=== PATIENT | female | born 1985 | race Caucasian/White ===

== ENCOUNTER 2019-01-19 14:31 | Outpatient (RCR) | payer MEDICAID, MEDICARE ==
[~2019-01-19 14:31] MED LIST: ACET325T38 PO; ACHD5005 PO; ALPR.25T PO; ALPR.5T PO; ALPR0.5T PO; ALPR2TAB6; CEPH-507 PO; CEPH500C PO; CPR500T PO; DOCU-143 PO; DOCU100C37 PO; DOCU100T7; FAMO-119 PO; FAMO10TA71; FAMO20TA13 PO; FAMO20TA5 PO; FAMO40TA6 PO; HYDR-1231 PO; HYDR-2858; HYDR-3820 PO; HYDR-700 PO; HYDR1TAB PO; HYDR480S10 PO; METH500T35 PO; NA P133E22 RC; NA P133E35 PR; NFR150C PO; NITR-65 PO; NITR100C3 PO; NITR100C44 PO; ONDA-42 PO; ONDA4TAB11 PO; ONDA4TAB8 PO; ONDA8TAB6 PO; PALI3TAB2; PEDI1TAB29 PO; POLY17PO23 GT; POLY17PO6 PO; PREN-98 PO; PREN1TAB39 PO; RANI150T66; SENN1TAB76 PO; SMT80CT PO; TRAM50TA2 PO; TRM50T PO; TRZ100T; WTCHGPD TP
== END 2019-04-19 | disposition home or self-care (01) ==
LOC: CARD 14:31
PROVIDERS: ATTEND Family Medicine
DX: R00.2 Palpitations (principal)
CPT/HCPCS: 93225; 93226

== ENCOUNTER 2020-02-05 17:27 | Emergency (ER) | payer MEDICARE, MEDICAID ==
[~2020-02-05] VITALS: Ht 152.4 cm; Wt 107.9 kg
[~2020-02-05 17:27] MED LIST changes: +ACHYD1T PO; -HYDR-3820 PO
[2020-02-05 18:03] LABS: BILIRUBIN,URINE NEGATIVE (NEGATIVE); CLARITY,URINE CLEAR; COLOR,URINE YELLOW; GLUCOSE, URINE (UA) NEGATIVE (NEGATIVE); KETONES,URINE NEGATIVE (NEGATIVE); LEUKOCYTE ESTERASE ,URINE NEGATIVE (NEGATIVE); NITRITE,URINE NEGATIVE (NEGATIVE); PROTEIN,URINE NEGATIVE (NEGATIVE)
[2020-02-05 18:16] LABS: BASOPHILS % (AUTO) 0 % (0-10); EOSINOPHILS # (AUTO) 0.1 10^3/uL (0.0-0.3); EOSINOPHILS % (AUTO) 1 % (0-10); HEMATOCRIT 41 % (35-52); HEMOGLOBIN 12.9 g/dL (11.5-16.0); LYMPHOCYTES % (AUTO) 24 % (12-44); MEAN CORPUSCULAR HEMOGLOBIN 28 pg (25-34); MEAN CORPUSCULAR HGB CONC 32 g/dL (32-36); MEAN CORPUSCULAR VOLUME 90 fL (80-99); MEAN PLATELET VOLUME 9.7 fL (9.0-12.2); MONOCYTES # (AUTO) 0.6 10^3/uL (0.0-1.0); MONOCYTES % (AUTO) 7 % (0-12); NEUTROPHILS # (AUTO) 5.5 10^3/uL (1.8-7.8); NEUTROPHILS % (AUTO) 67 % (42-75); PLATELET COUNT 239 10^3/uL (130-400); WHITE BLOOD COUNT 8.2 10^3/uL (4.3-11.0)
[2020-02-05 18:19] LABS: AMORPHOUS SEDIMENT,UR FEW AMOR URATES /LPF; BACTERIA,URINE TRACE /HPF
--- NOTE | 2020-02-05 18:24 | ED GU-Female ---
General Chief Complaint: Female Reproductive Stated Complaint: BURNING SENSATION/NAUSEA/ORANGE TINGED DISCHARGE Nursing Triage Note: PT AMB TO [facility] 3 WITH COMPLAINT OF UTERINE BURNING FOR THE LAST 24 HOURS. PT THINKS SHE IS APPROX 5-15 WEEKS . STATES MISCARRIED 8 WEEKS AGO. Nursing Sepsis Screen: No Definite Risk Source: patient Exam Limitations: no limitations History of Present Illness Date Seen by Provider: Feb 05, 2020 Time Seen by Provider: 18:19 Initial Comments To ER with suprapubic abdominal burning sensation since of last week with orange discolored urine noticed today. No fevers or chills no lightheadedness. She is and believes herself to be about 5 to 15 weeks along but is not exactly sure. She is scheduled to see Dr. Garcia for this but has not yet seen her. Timing/Duration: constant Severity/Quality: moderate, cramping Location: suprapubic Radiation: none Activities at Onset: none Prior Genitourinary Problems: none Associated Symptoms: denies symptoms Allergies and Home Medications Allergies Coded Allergies: Sulfa (Sulfonamide Antibiotics) (Unverified Allergy, Mild, 06/23/08) azithromycin (Unverified Allergy, Mild, 06/23/08) codeine (Verified Allergy, Mild, 02/05/13) diphenhydramine (Unverified Allergy, Mild, 07/11/08) doxycycline (Unverified Allergy, Mild, 06/23/08) ibuprofen (Unverified Allergy, Mild, 06/23/08) morphine (Verified Allergy, Mild, 02/05/13) prochlorperazine edisylate (Unverified Allergy, Mild, 10/17/10) prochlorperazine maleate (Unverified Allergy, Mild, 10/17/10) promethazine (Unverified Allergy, Mild, 06/23/08) topiramate (Unverified Allergy, Mild, 08/08/08) Latex, Natural Rubber (Verified Allergy, Unknown, 02/26/15) Metronidazole HCl (Unverified Allergy, Unknown, 05/12/13) NSAIDS (Non-Steroidal Anti-Inflamma (Verified Allergy, Unknown, 05/12/13) Penicillins (Unverified Allergy, Unknown, 05/12/13) acetaminophen (Verified Allergy, Unknown, 02/26/15) iodine (Verified Allergy, Unknown, 02/26/15) metoclopramide (Verified Allergy, Unknown, 02/26/15) metronidazole (Unverified Allergy, Unknown, 05/12/13) ondansetron (Verified Allergy, Unknown, 02/26/15) oxycodone (Verified Allergy, Unknown, 02/26/15) Uncoded Allergies: TAPE (Adverse Reaction, Unknown, 02/26/15) Home Medications Tramadol HCl 50 Mg Tablet, 50-100 MG PO Q6H PRN for PAIN Prescribed by: NICOLLE NEAL on 09/12/15 0147 Tramadol HCl 50 Mg Tablet, 50 MG PO Q6H PRN for PAIN Prescribed by: JOHANN HUNTLEY on 12/01/151957 Patient Home Medication List Home Medication List Reviewed: Yes Review of Systems Review of Systems Constitutional: see HPI EENTM: see HPI Respiratory: no symptoms reported Cardiovascular: no symptoms reported Genitourinary: no symptoms reported Musculoskeletal: no symptoms reported Skin: no symptoms reported Psychiatric/Neurological: No Symptoms Reported Endocrine: No Symptoms Reported Hematologic/Lymphatic: No Symptoms Reported Past Cuxlklf-Ymdhhb-Qowamu Hx Patient Social History Alcohol Use: Denies Use Recreational Drug Use: Yes (THC) Smoking Status: Former Smoker Recent Foreign Travel: No Contact w/Someone Who Travel: No Recent Infectious Disease Expo: No Recent Hopitalizations: No Immunizations Up To Date Tetanus Booster (TDap): Unknown PED Vaccines UTD: Yes Seasonal Allergies Seasonal Allergies: No Past Medical History Surgeries: Yes (EGD/COLONOSCOPY, LIPOMAS REMOVED X 2) Section Respiratory: No Cardiac: No Neurological: No Reproductive Disorders: No Female Reproductive Disorders: Denies Sexually Transmitted Disease: Yes (chlamydia tx 2-3 yrs ago) HIV/AIDS: No Gastrointestinal: Yes Gastroesophageal Reflux, Chronic Constipation, Hemorrhoids, Irritable Bowel Musculoskeletal: Yes Fibromyalgia, Chronic Back Pain Endocrine: No Loss of Vision: Denies Hearing Impairment: Denies Cancer: No Psychosocial: Yes Anxiety, PTSD Integumentary: No Blood Disorders: No Adverse Reaction/Blood Tranf: No Family Medical History Cancer (MOTHER, AUNT, MGM,) Cataract (MGM) Congestive heart failure (MOTHER, AUNT, MGM) Family history: Alzheimer's disease (FATHER'S GRANDFATHER,) Family history: Arthritis (MOTHER'S AND FATHER'S SIDE OF FAMILY) Family history: Asthma Family history: Breast disease (MGM) Family history: Cardiovascular disease (MOTHER FATHER'S SIDE OF FAMILY) Family history: Diabetes mellitus (FATHER'S SIDE OF FAMILY) Family history: Gastrointestinal disease (MOTHER) Family history: Hypertension (MOTHER AND FATHER'S SIDE OF FAMILY) Family history: Osteoporosis (MOTHER AND MGM) Hearing loss (MOTHER, FATHER'S SIDE OF FAMILY) Heart disease History of - anemia (AUNT, MGM) History of drug abuse Hypercholesterolemia (MOTHER AND MGM) Myocardial infarction (MGM) Psychotic disorder (MOTHER'S SIDE OF FAMILY) Physical Exam Vital Signs Vital Signs - First Documented 02/05/20 17:50 Temp 36.3 Pulse 90 Resp 20 B/P (MAP) 113/73 (86) Pulse Ox 97 O2 Delivery Room Air Capillary Refill : Less Than 3 Seconds Height, Weight, BMI Height: 5'0" Weight: 220lbs. 2.0oz. 99.609258kv; 46.00 BMI Method:Stated General Appearance: WD/WN, no apparent distress, obese (pleasant, no distress, alert and oriented) Neck: non-tender, full range of motion Cardiovascular: regular rate, rhythm, no murmur Respiratory: no respiratory distress, no accessory muscle use Gastrointestinal: normal bowel sounds, non tender, soft Extremities: normal range of motion, non-tender Neurologic/Psychiatric: alert, normal mood/affect, oriented x 3 Skin: normal color, warm/dry Progress/Results/Core Measures Suspected Sepsis Recent Fever Within 48 Hours: No Infection Criteria Present: None New/Unexplained Altered Menta: No Sepsis Screen: No Definite Risk SIRS Temperature: Pulse: 90 Respiratory Rate: 20 Laboratory Tests 02/05/20 18:10: White Blood Count 8.2 Blood Pressure 113 /73 Mean: 86 Laboratory Tests 02/05/20 18:10: Creatinine 0.78, Platelet Count 239, Total Bilirubin 0.4 Results/Orders Lab Results Laboratory Tests Test 02/05/20 17:52 02/05/20 18:06 02/05/20 18:10 Range/Units Urine Color YELLOW Urine Clarity CLEAR Urine pH 7.0 5-9 Urine Specific [place] 1.015 L 1.016-1.022 Urine Protein NEGATIVE NEGATIVE Urine Glucose (UA) NEGATIVE NEGATIVE Urine Ketones NEGATIVE NEGATIVE Urine Nitrite NEGATIVE NEGATIVE Urine Bilirubin NEGATIVE NEGATIVE Urine Urobilinogen 0.2 < = 1.0 MG/DL Urine Leukocyte Esterase NEGATIVE NEGATIVE Urine RBC (Auto) NEGATIVE NEGATIVE Urine RBC NONE /HPF Urine WBC NONE /HPF Urine Squamous Epithelial Cells 5-10 /HPF Urine Crystals PRESENT H /LPF Urine Amorphous Sediment FEW MARYJANE URATES H /LPF Urine Bacteria TRACE /HPF Urine Casts NONE /LPF Urine Mucus SMALL H /LPF Urine Culture Indicated NO Urine Test POSITIVE NEGATIVE White Blood Count 8.2 4.3-11.0 10^3/uL Red Blood Count 4.55 3.80-5.11 10^6/uL Hemoglobin 12.9 11.5-16.0 g/dL Hematocrit 41 35-52 % Mean Corpuscular Volume 90 80-99 fL Mean Corpuscular Hemoglobin 28 25-34 pg Mean Corpuscular Hemoglobin Concent 32 32-36 g/dL Red Cell Distribution Width 13.1 10.0-14.5 % Platelet Count 239 130-400 10^3/uL Mean Platelet Volume 9.7 9.0-12.2 fL Immature Granulocyte % (Auto) 0 % Neutrophils (%) (Auto) 67 42-75 % Lymphocytes (%) (Auto) 24 12-44 % Monocytes (%) (Auto) 7 0-12 % Eosinophils (%) (Auto) 1 0-10 % Basophils (%) (Auto) 0 0-10 % Neutrophils # (Auto) 5.5 1.8-7.8 10^3/uL Lymphocytes # (Auto) 2.0 1.0-4.0 10^3/uL Monocytes # (Auto) 0.6 0.0-1.0 10^3/uL Eosinophils # (Auto) 0.1 0.0-0.3 10^3/uL Basophils # (Auto) 0.0 0.0-0.1 10^3/uL Immature Granulocyte # (Auto) 0.0 0.0-0.1 10^3/uL Sodium Level 137 135-145 MMOL/L Potassium Level 3.7 3.6-5.0 MMOL/L Chloride Level 105 98-107 MMOL/L Carbon Dioxide Level 22 21-32 MMOL/L Anion Gap 10 5-14 MMOL/L Blood Urea Nitrogen 8 7-18 MG/DL Creatinine 0.78 0.60-1.30 MG/DL Estimat Glomerular Filtration Rate > 60 BUN/Creatinine Ratio 10 Glucose Level 92 70-105 MG/DL Calcium Level 8.5 8.5-10.1 MG/DL Corrected Calcium 8.5 8.5-10.1 MG/DL Total Bilirubin 0.4 0.1-1.0 MG/DL Aspartate Amino Transf (AST/SGOT) 14 5-34 U/L Alanine Aminotransferase (ALT/SGPT) 17 0-55 U/L Alkaline Phosphatase 41 40-136 U/L Total Protein 6.8 6.4-8.2 GM/DL Albumin 4.0 3.2-4.5 GM/DL Human Chorionic Gonadotropin, Quant 2358 H <5 MIU/ML My Orders Orders - DAVID AGUILERA APRN Ua Culture If Indicated (02/05/20 17:42) Hcg,Qualitative Urine (02/05/20 17:42) Hcg,Quantitative (02/05/20 17:54) Cbc With Automated Diff (02/05/20 17:54) Comprehensive Metabolic Panel (02/05/20 17:54) Neisseria Gonorrhea Swab (02/05/20 17:57) Chlam Dna Probe (02/05/20 17:57) Wet Prep (02/05/20 17:57) Genital Culture (02/05/20 17:57) Vital Signs/I&O 02/05/20 17:50 Temp 36.3 Pulse 90 Resp 20 B/P (MAP) 113/73 (86) Pulse Ox 97 O2 Delivery Room Air Capillary Refill : Less Than 3 Seconds Blood Pressure Mean: 86 Departure Communication (Admissions) pelvic exam with Norma PCT at bedside shows no vaginal bleeding or discharge from cervix. Impression Primary Impression: Suprapubic abdominal burning sensation Additional Impression: Abdominal pain in Disposition: 01 HOME, SELF-CARE Condition: Stable Departure-Patient Inst. Decision time for Depature: 18:55 Referrals: NO,LOCAL PHYSICIAN (PCP/Family) Primary Care Physician Patient Instructions: NO INSTRUCTIONS GIVEN Add. Discharge Instructions: 1. Call your regular doctor this week for recheck. Return to ER for any concerns. Emergency department focuses on treating and ruling out life- threatening diseases. Whenever possible, a diagnosis is given. However, most patients are given an impression based on their history, physical exam, and workup during your brief time in the ER. Information about probable diagnosis and other educational material has been provided. Please take the time to read a nd understand this information. It is very important that you follow up with a physician as discussed during the visit today. Failure to adhere to your follow-up instructions may lead to severe disability, injury, or so please make sure to keep your appointments or obtain one as requested. All discharge instructions reviewed with patient and/or family. Voiced understanding. DAVID AGUILERA BUNCH BREAKER Feb 05, 2020 18:24
[2020-02-05 18:33] LABS: CHLORIDE 105 MMOL/L (98-107); POTASSIUM 3.7 MMOL/L (3.6-5.0); SODIUM 137 MMOL/L (135-145)
[2020-02-05 18:35] LABS: CALCIUM 8.5 MG/DL (8.5-10.1)
[2020-02-05 18:36] LABS: GLUCOSE 92 MG/DL (70-105); TOTAL PROTEIN 6.8 GM/DL (6.4-8.2)
[2020-02-05 18:37] LABS: CARBON DIOXIDE 22 MMOL/L (21-32)
[2020-02-05 18:38] LABS: BILIRUBIN,TOTAL 0.4 MG/DL (0.1-1.0)
[2020-02-05 18:39] LABS: ALKALINE PHOSPHATASE 41 U/L (40-136); CREATININE SERUM 0.78 MG/DL (0.60-1.30); GFR ESTIMATED > 60
[2020-02-05 18:40] LABS: BUN/CREATININE RATIO 10
[2020-02-05 18:42] LABS: ALANINE AMINOTRANSFERASE 17 U/L (0-55)
[2020-02-05 19:09] VITALS: BP 110/76
== END 2020-02-05 19:09 | disposition home or self-care (01) ==
LOC: EDUNIT# 17:27 → ER 17:31
DX: O26.899 Other specified pregnancy related conditions, unspecified trimester (principal); R10.30 Lower abdominal pain, unspecified; E66.9 Obesity, unspecified; Z3A.00 Weeks of gestation of pregnancy not specified; Z82.61 Family history of arthritis; Z82.49 Family history of ischemic heart disease and other diseases of the circulatory system; Z83.3 Family history of diabetes mellitus; Z80.9 Family history of malignant neoplasm, unspecified; Z87.891 Personal history of nicotine dependence; Z88.2 Allergy status to sulfonamides; Z88.6 Allergy status to analgesic agent; Z88.1 Allergy status to other antibiotic agents; Z88.5 Allergy status to narcotic agent; Z88.0 Allergy status to penicillin; Z91.040 Latex allergy status; Z91.041 Radiographic dye allergy status; Z88.8 Allergy status to other drugs, medicaments and biological substances
CPT/HCPCS: 36415; 80053; 81000; 84702; 84703; 85025; 87070; 87205; 87210; 87491; 87591; 99284

== ENCOUNTER → 2020-05-01 | Outpatient (CLI) | payer MEDICARE, MEDICAID ==
--- NOTE | 2020-05-01 16:53 | Diagnostic Imaging Report ---
INDICATION: survey. TECHNIQUE: Multiple real-time grayscale images were obtained over the gravid uterus. COMPARISON: None FINDINGS: There are no prior studies available for comparison. There is a single live fetus in cephalic presentation. heart motion was noted and a rate 158 BPM is recorded. There are no obvious abnormalities identified but this exam was technically difficult due to the patient's body habitus. I would recommend that a short-term (4-6 week) follow-up OB ultrasound exam be performed for more sensitive evaluation of the anatomy. The growth parameters are fairly uniform. The placenta is posterior and there is no previa. The amniotic fluid volume is within normal limits. The cervix was identified and measures 4.8 cm in length. Biometrical measurements are as follows: Biparietal 3.71 cm, age 17 weeks 3 days. Head circumference 13.82 cm, age 17 weeks 2 days. Abdominal circumference 11.50 cm, age 17 weeks 2 days. Femur length 2.39 cm, age 17 weeks 2 days. Sonographic estimate age: 17 weeks 3 days. Sonographic estimated date of delivery: 10/06/2020. Estimated Weight: 187 gm (+/- 27 gm). LMP percentile: 41%. heart rate: 158 beats per minute. number: 1 of 1. IMPRESSION: 1. There is a single live fetus of approximately 17 weeks 3 days gestation +/- 1 week. EDC is 10/06/2020. 2. There are no obvious abnormalities identified. Recommendations as above. 3. The growth parameters are fairly uniform. Dictated by: Dictated on workstation # [id number]
== END ==
LOC: RAD 15:11
PROVIDERS: ATTEND Obstetrics & Gynecology
DX: Z34.92 Encounter for supervision of normal pregnancy, unspecified, second trimester (principal); Z3A.17 17 weeks gestation of pregnancy
CPT/HCPCS: 76805

== ENCOUNTER → 2020-06-13 | Outpatient (CLI) | payer MEDICARE, MEDICAID ==
--- NOTE | 2020-06-13 15:07 | Diagnostic Imaging Report ---
INDICATION: survey. TECHNIQUE: Multiple real-time grayscale images were obtained over the gravid uterus. COMPARISON: 05/01/2020. FINDINGS: There is a single live fetus in a blank presentation. heart rate was recorded at 155 bpm. Placenta is posterior. Amniotic fluid volume is normal. Cervical length is 6.7 cm. survey shows the kidneys, bladder and stomach to be unremarkable. brain is unremarkable. There is a four-chamber heart. There is a three-vessel cord with normal insertion. spine is unremarkable. Overall quality is limited due to patient body habitus. Biometrical measurements are as follows: Biparietal 5.64 cm, age 23 weeks 2 days. Head circumference 21.27 cm, age 23 weeks 3 days. Abdominal circumference 18.00 cm, age 23 weeks 0 days. Femur length 4.16 cm, age 23 weeks 4 days. Sonographic estimate age: 23 weeks 3 days. Sonographic estimated date of delivery: 10/07/2020. Estimated Weight: 570 gm (+/- 83 gm). LMP percentile: 30%. heart rate: 155 beats per minute. number: 1 of 1. IMPRESSION: Single live IUP 23-24 weeks gestational age showing normal interval growth when compared prior exam from 05/01/2020. No complicating features are detected. Dictated by: Dictated on workstation # [id number]
== END ==
LOC: RAD 13:46
PROVIDERS: ATTEND Obstetrics & Gynecology
DX: Z34.92 Encounter for supervision of normal pregnancy, unspecified, second trimester (principal); Z3A.23 23 weeks gestation of pregnancy
CPT/HCPCS: 76805

== ENCOUNTER 2020-07-12 18:56 | Outpatient (CLI) | payer MEDICARE, MEDICAID ==
[~2020-07-12] VITALS: Ht 157.5 cm; Wt 119.6 kg
[2020-07-12 19:30] VITALS: BP 120/62
[2020-07-12 19:58] LABS: BILIRUBIN,URINE NEGATIVE (NEGATIVE); CLARITY,URINE CLEAR; COLOR,URINE YELLOW; GLUCOSE, URINE (UA) NEGATIVE (NEGATIVE); KETONES,URINE NEGATIVE (NEGATIVE); LEUKOCYTE ESTERASE ,URINE NEGATIVE (NEGATIVE); NITRITE,URINE NEGATIVE (NEGATIVE); PROTEIN,URINE NEGATIVE (NEGATIVE)
[2020-07-12 20:04] LABS: BACTERIA,URINE TRACE /HPF; SQUAMOUS EPITHELIAL CELL,UR 0-2 /HPF
--- NOTE | 2020-07-15 07:40 | Physician Query-Final Dx ---
KATHERINE AGUILAR 07/15/20 0739: Clinic Account Progress/Dx Physician Query: Please give diagnosis Please include # weeks gestation Date of Service July 12, 2020 at 18:56 RAJAT GROSS DO 07/15/20 0754: Clinic Account Progress/Dx DIAGNOSIS: Diagnosis 28 week IUP Pelvic pressure KATHERINE AGUILAR July 15, 2020 07:39 RAJAT GROSS DO July 15, 2020 07:54
== END 2020-07-12 21:15 | disposition home or self-care (01) ==
LOC: WSo 18:56 → LDRP 18:56 → WSo 21:15
PROVIDERS: ATTEND Obstetrics & Gynecology
DX: O26.893 Other specified pregnancy related conditions, third trimester (principal); Z3A.28 28 weeks gestation of pregnancy
CPT/HCPCS: 81000; G0463; 99214

== ENCOUNTER → 2020-08-19 | Outpatient (CLI) | payer MEDICARE, MEDICAID ==
--- NOTE | 2020-08-19 13:22 | Diagnostic Imaging Report ---
INDICATION: Gestational diabetes. TECHNIQUE: Multiple real-time grayscale images were obtained over the gravid uterus. COMPARISON: 06/13/2020. FINDINGS: There is a single live fetus in a cephalic presentation. heart rate was recorded at 128 bpm. Placenta is posterior and to the right. Amniotic fluid volume is normal. Biometry measurements today are consistent with approximately 36 weeks gestational age. Biophysical profile was performed. Overall biophysical profile score is 8 out of 8. Amniotic fluid index was 17.0 cm. Biometrical measurements are as follows: Biparietal 8.65 cm, age 35 weeks 0 days. Head circumference 32.80 cm, age 37 weeks 2 days. Abdominal circumference 33.19 cm, age 37 weeks 1 days. Femur length 6.60 cm, age 34 weeks 0 days. Sonographic estimate age: 35 weeks 6 days. Sonographic estimated date of delivery: 09/17/2020. Estimated Weight: 2849 gm (+/- 416 gm). LMP percentile: 98%. heart rate: 128 beats per minute. number: 1 of 1. IMPRESSION: Single live IUP measuring 36 weeks gestational age. Biophysical profile score was normal at 8 out of 8. Dictated by: Dictated on workstation # [id number]
== END ==
LOC: RAD 10:31
PROVIDERS: ATTEND Obstetrics & Gynecology
DX: O24.410 Gestational diabetes mellitus in pregnancy, diet controlled (principal); Z3A.36 36 weeks gestation of pregnancy
CPT/HCPCS: 36415; 76805; 76819; 82951; 82952

== ENCOUNTER → 2020-08-26 | Outpatient (CLI) | payer MEDICARE, MEDICAID ==
--- NOTE | 2020-08-26 16:09 | Diagnostic Imaging Report ---
INDICATION: Gestational diabetes. FINDINGS: Ultrasonography reveals a davis intrauterine fetus in cephalic presentation with an amniotic fluid index of 7.1 cm. cardiac activity is present with a rate of 161 BPM. The placenta is posterior without evidence of previa and the cervical length is 6.4 cm. There is breathing motion; however, movements of the trunk and limbs were not confirmed. IMPRESSION: biophysical profile score of 4/8 with hypotonia and decreased movement. Dictated by: Dictated on workstation # [id number]
== END ==
LOC: RAD 14:25
PROVIDERS: ATTEND Obstetrics & Gynecology
DX: O62.0 Primary inadequate contractions (principal); O24.419 Gestational diabetes mellitus in pregnancy, unspecified control; O36.8190 Decreased fetal movements, unspecified trimester, not applicable or unspecified; Z3A.00 Weeks of gestation of pregnancy not specified
CPT/HCPCS: 76819

== ENCOUNTER 2020-08-27 12:51 | Outpatient (CLI) | payer MEDICARE, MEDICAID ==
[~2020-08-27] VITALS: Ht 152 cm; Wt 120.5 kg
[2020-08-27 13:39] VITALS: BP 121/66
--- NOTE | 2020-08-27 16:39 | Diagnostic Imaging Report ---
INDICATION: [place] BPP/NST 08/26/20 gestational diabetes. COMPARISON: 08/26/2020. Biophysical Profile Score: Movement: 2 Breathin Tone: 2 Fluid: 2 Total: 10/06 Heart Rate: 143 BPM Presentation is cephalic. Placenta is posterior in position but the inferior margin is not evaluated. REJI is 6.72cm. The single largest vertical pocket is 4.2 cm. Cervix measures approximately 5 cm in length. IMPRESSION: Normal Biophysical Profile Score. Dictated by: Dictated on workstation # [id number]
--- NOTE | 2020-08-28 07:44 | Physician Query-Final Dx ---
KATHERINE AGUILAR 08/28/20 0744: Clinic Account Progress/Dx Physician Query: Please give diagnosis Please include # weeks gestation Date of Service Aug 27, 2020 at 12:51 MATIAS DAVIES DO 08/31/20 0946: Clinic Account Progress/Dx DIAGNOSIS: Diagnosis 33 weeks gestation borderline testing gestational diabetes, poor control non compliance KATHERINE AGUILAR Aug 28, 2020 07:44 MATIAS DAVIES DO Aug 31, 2020 09:46
== END 2020-08-27 14:30 | disposition home or self-care (01) ==
LOC: LDRP 12:51 → WSo 12:51
PROVIDERS: ATTEND Obstetrics & Gynecology
DX: O24.419 Gestational diabetes mellitus in pregnancy, unspecified control (principal); Z91.19 Patient's noncompliance with other medical treatment and regimen; Z3A.33 33 weeks gestation of pregnancy
CPT/HCPCS: 59025; 76819

== ENCOUNTER → 2020-09-05 | Outpatient (CLI) | payer MEDICARE, MEDICAID ==
--- NOTE | 2020-09-05 17:58 | Diagnostic Imaging Report ---
INDICATION: High risk . EXAMINATION: Biophysical profile. FINDINGS: Ultrasonography reveals davis intrauterine fetus in cephalic presentation. cardiac activity is present with a rate of 159 beats per minute. Amniotic fluid index is 8.4 cm. breathing movements, motion and tone were confirmed. IMPRESSION: Normal biophysical profile score of 8/8. Dictated by: Dictated on workstation # [id number]
== END ==
LOC: RAD 12:16
PROVIDERS: ATTEND Obstetrics & Gynecology
DX: O09.299 Supervision of pregnancy with other poor reproductive or obstetric history, unspecified trimester (principal); O09.90 Supervision of high risk pregnancy, unspecified, unspecified trimester; Z3A.00 Weeks of gestation of pregnancy not specified
CPT/HCPCS: 76819

== ENCOUNTER 2020-09-10 13:50 | Outpatient (CLI) | payer MEDICARE, MEDICAID ==
[~2020-09-10] VITALS: Ht 157.5 cm; Wt 122.7 kg
[2020-09-10 14:22] VITALS: BP 129/75
[2020-09-10 14:56] LABS: BILIRUBIN,URINE NEGATIVE (NEGATIVE); CLARITY,URINE CLEAR; COLOR,URINE YELLOW; GLUCOSE, URINE (UA) NEGATIVE (NEGATIVE); KETONES,URINE NEGATIVE (NEGATIVE); LEUKOCYTE ESTERASE ,URINE NEGATIVE (NEGATIVE); NITRITE,URINE NEGATIVE (NEGATIVE); PROTEIN,URINE NEGATIVE (NEGATIVE)
[2020-09-10 15:12] LABS: BACTERIA,URINE TRACE /HPF; WBC,URINE 0-2 /HPF
--- NOTE | 2020-09-11 09:13 | Physician Query-Final Dx ---
KATHERINE AGUILAR 09/11/20 0913: Clinic Account Progress/Dx Physician Query: Please give diagnosis Please include # weeks gestation Date of Service Sep 10, 2020 at 13:50 MATIAS DAVIES DO 09/11/20 1158: Clinic Account Progress/Dx DIAGNOSIS: Diagnosis 36 week gestation contraction gestational diabetes, poor control non compliant previous section KATHERINE AGUILAR Sep 11, 2020 09:13 MATIAS DAVIES DO Sep 11, 2020 11:58
== END 2020-09-10 15:30 | disposition home or self-care (01) ==
LOC: WSo 13:50 → LDRP 13:51 → WSo 15:30
PROVIDERS: ATTEND Obstetrics & Gynecology
DX: O62.9 Abnormality of forces of labor, unspecified (principal); O24.419 Gestational diabetes mellitus in pregnancy, unspecified control; Z3A.36 36 weeks gestation of pregnancy
CPT/HCPCS: 81000; 82947; G0463; 99213

== ENCOUNTER → 2020-09-12 | Outpatient (CLI) | payer MEDICARE, MEDICAID ==
[~2020-09-12] MED LIST changes: +DCS100C PO; +OXC5T PO; +[UNRECOGNIZED DRUG - OTHER]
--- NOTE | 2020-09-12 15:53 | Diagnostic Imaging Report ---
INDICATION: High risk , gestational diabetes TECHNIQUE: Multiple real-time grayscale images were obtained over the gravid uterus. COMPARISON: 08/19/2020 FINDINGS: Intrauterine currently in a cephalic presentation. Normal amount of amniotic fluid, index at 18.32 cm. anatomical evaluation performed. Biometrical measurements are as follows: Biparietal 9.67 cm, age 39 weeks 4 days. Head circumference 34.26 cm, age 39 weeks 4 days. Abdominal circumference 34.69 cm, age 38 weeks 5 days. Femur length 7.32 cm, age 37 weeks 4 days. Sonographic estimate age: 38 weeks 6 days. Sonographic estimated date of delivery: 09/20/20. Estimated Weight: 3531 gm (+/- 516 gm). LMP percentile: 95%. heart rate: 149 beats per minute. number: 1 of 1. Biophysical Profile Scoring: breathin Body movement: 2 tone: 2 Amniotic fluid: 2 Total BPP Score: 8/8 IMPRESSION: 1. Single viable intrauterine currently in a cephalic presentation. Sonographic estimated age 38 weeks 6 days for an estimated date of delivery 09/20/2020 this corresponds to initial ultrasound dating. 2. Normal biophysical profile score. Dictated by: Dictated on workstation # [id number]
== END ==
LOC: RAD 12:50
PROVIDERS: ATTEND Obstetrics & Gynecology
DX: O24.410 Gestational diabetes mellitus in pregnancy, diet controlled (principal); O09.299 Supervision of pregnancy with other poor reproductive or obstetric history, unspecified trimester; Z3A.38 38 weeks gestation of pregnancy
CPT/HCPCS: 76805; 76819

== ENCOUNTER 2020-09-13 12:45 | Inpatient (IN) | payer MEDICARE, MEDICAID ==
[2020-09-13] VITALS (8 sets, daily range): BP systolic 122–141; BP diastolic 72–91
[~2020-09-13] VITALS: Ht 154.9 cm; Wt 122.7 kg
[~2020-09-13 12:45] MED LIST changes: -DCS100C PO; -OXC5T PO; -[UNRECOGNIZED DRUG - OTHER]
[2020-09-13] MEDS ORDERED: CITRIC ACID/SOB CIT (BICITRA) 30 ML UDC PO ONE ×2 (13:30→13:45)
[2020-09-13] MEDS ORDERED: LACTATED RINGERS 1,000 ML IV PRN ×3 (13:30→13:45)
[2020-09-13 13:39] LABS: BASOPHILS % (AUTO) 0 % (0-10); EOSINOPHILS # (AUTO) 0.1 10^3/uL (0.0-0.3); EOSINOPHILS % (AUTO) 1 % (0-10); HEMATOCRIT 36 % (35-52); HEMOGLOBIN 11.5 g/dL (11.5-16.0); LYMPHOCYTES # (AUTO) 1.9 10^3/uL (1.0-4.0); LYMPHOCYTES % (AUTO) 15 % (12-44); MEAN CORPUSCULAR HEMOGLOBIN 27 pg (25-34); MEAN CORPUSCULAR HGB CONC 32 g/dL (32-36); MEAN CORPUSCULAR VOLUME 83 fL (80-99); MEAN PLATELET VOLUME 10.3 fL (9.0-12.2); MONOCYTES # (AUTO) 0.9 10^3/uL (0.0-1.0); MONOCYTES % (AUTO) 7 % (0-12); NEUTROPHILS # (AUTO) 9.7 10^3/uL (1.8-7.8); NEUTROPHILS % (AUTO) 77 % (42-75); PLATELET COUNT 220 10^3/uL (130-400); WHITE BLOOD COUNT 12.7 10^3/uL (4.3-11.0)
[2020-09-13 14:27] LABS: ALANINE AMINOTRANSFERASE 16 U/L (0-55); ALBUMIN 3.3 GM/DL (3.2-4.5); ALKALINE PHOSPHATASE 148 U/L (40-136); BILIRUBIN,TOTAL 0.3 MG/DL (0.1-1.0); BUN/CREATININE RATIO 15; CARBON DIOXIDE 19 MMOL/L (21-32); CHLORIDE 108 MMOL/L (98-107); CREATININE SERUM 0.65 MG/DL (0.60-1.30); GFR ESTIMATED > 60; GLUCOSE 93 MG/DL (70-105); POTASSIUM 3.9 MMOL/L (3.6-5.0); SODIUM 137 MMOL/L (135-145); TOTAL PROTEIN 6.6 GM/DL (6.4-8.2)
[2020-09-13] MEDS ORDERED: FAMOTIDINE 20MG/2ML IV (PEPCID) IVP NR (14:30)
--- NOTE | 2020-09-13 14:39 | History & Physical-OB ---
OB - Chief Complaint & HPI Date/Time Date of Admission: Date of Admission: Sep 13, 2020 at 12:45 Date seen by a Provider: Sep 13, 2020 Time Seen by a Provider: 14:30 Chief Complaint/History OB-Reason for Admission/Chief: Section Hx : 9 Hx Para: 2153 Expected Date of Delivery: Oct 07, 2020 Gestational Age in Weeks: 36 Gestational Age in Days: 4 Indication for : desires repeat History of Labs A+/- HBsAg - Hep C - Rub I VDRL NR HIV - elevated 1 hour. Refused 3 hour Has not been checking blood sugars Other Patient with previous history of cs x 3 G9/3153 at 36 4/7 weeks has had gest diabetes but has declined checking her blood sugars presented to office yesterday for visit and was yi regularly every 2-5 minutes due to previous history of CS x 3 decided to do CS due to history of uterine window. otherwise uncomplicated Has had borderline testing but passed other testing Growth is LGA and polyhydramnios Allergies and Home Medications Allergies Coded Allergies: Sulfa (Sulfonamide Antibiotics) (Unverified Allergy, Mild, 06/23/08) azithromycin (Unverified Allergy, Mild, 06/23/08) codeine (Verified Allergy, Mild, 02/05/13) diphenhydramine (Unverified Allergy, Mild, 07/11/08) doxycycline (Unverified Allergy, Mild, 06/23/08) ibuprofen (Unverified Allergy, Mild, 06/23/08) morphine (Verified Allergy, Mild, 02/05/13) prochlorperazine edisylate (Unverified Allergy, Mild, 10/17/10) prochlorperazine maleate (Unverified Allergy, Mild, 10/17/10) promethazine (Unverified Allergy, Mild, 06/23/08) topiramate (Unverified Allergy, Mild, 08/08/08) Latex, Natural Rubber (Verified Allergy, Unknown, 02/26/15) Metronidazole HCl (Unverified Allergy, Unknown, 05/12/13) NSAIDS (Non-Steroidal Anti-Inflamma (Verified Allergy, Unknown, 05/12/13) Penicillins (Unverified Allergy, Unknown, 05/12/13) acetaminophen (Verified Allergy, Unknown, 02/26/15) iodine (Verified Allergy, Unknown, 02/26/15) metoclopramide (Verified Allergy, Unknown, 02/26/15) metronidazole (Unverified Allergy, Unknown, 05/12/13) ondansetron (Verified Allergy, Unknown, 02/26/15) oxycodone (Verified Allergy, Unknown, 02/26/15) Uncoded Allergies: TAPE (Adverse Reaction, Unknown, 02/26/15) Home Medications No Active Prescriptions or Reported Meds Patient Home Medication List Home Medication List Reviewed: Yes OB - History Hx of Present Ultrasounds: Normal mid trimester US Obstetrical Complications: Gestational Diabetes Medical Complications: None Information Induced Hypertension: Yes Maternal Gestational Diabetes: Yes Hemorrhage: No Obstetrical History Hx : 9 Hx Para: 3053 Hx # Term Pregnancies: 3 Hx # Pregnancies: 1 Number of Living Children: 3 Hx Termination: No Hx Multiple Gestation: No Hx Stillbirth: No Hx Complication: No Hx Induced Hypertens: No Hx Maternal Gestational Diabet: No Delivery History Hx Dystocia: No Hx Large For Gestational Age I: No Hx Small for Gestational Age I: No Hx Section: Yes Hx Vaginal Delivery Post C-Sec: No Hx Blood Disorders: No Adverse Rxn to Tranfusion: No Patient Past Medical History gestational diabetes, not compliant with checking blood sugars Social History/Family History Alcohol Use: Denies Use 2nd Hand Smoke Exposure: No Immunizations Hepatitis B: Yes Tetanus Booster (TDap): Less than 5yrs Rubella: immune RPR/VDRL: Negative GBS Status: Negative HBsAG: Negative OB - Admission Exam Physical Exam Heart: Rhythm Normal Lungs: Clear Abdomen: Gravid Extremities: Normal Reflexes: Normal Cervical Dilatation: None Effacement: 0% Station: Ballotable Membranes: Intact Heart Rate: 130's Accelerations: Accelerations Present Decelerations: Variable Decelerations Short Term Variability: Present Halfway Variability: Minimal (3-5) Contractions on Admission: < 5 Minutes Apart Intensity: Mild Labs Laboratory Tests Test 09/13/20 13:01 09/13/20 13:12 Range/Units White Blood Count 12.7 H 4.3-11.0 10^3/uL Red Blood Count 4.27 3.80-5.11 10^6/uL Hemoglobin 11.5 11.5-16.0 g/dL Hematocrit 36 35-52 % Mean Corpuscular Volume 83 80-99 fL Mean Corpuscular Hemoglobin 27 25-34 pg Mean Corpuscular Hemoglobin Concent 32 32-36 g/dL Red Cell Distribution Width 13.2 10.0-14.5 % Platelet Count 220 130-400 10^3/uL Mean Platelet Volume 10.3 9.0-12.2 fL Immature Granulocyte % (Auto) 1 % Neutrophils (%) (Auto) 77 H 42-75 % Lymphocytes (%) (Auto) 15 12-44 % Monocytes (%) (Auto) 7 0-12 % Eosinophils (%) (Auto) 1 0-10 % Basophils (%) (Auto) 0 0-10 % Neutrophils # (Auto) 9.7 H 1.8-7.8 10^3/uL Lymphocytes # (Auto) 1.9 1.0-4.0 10^3/uL Monocytes # (Auto) 0.9 0.0-1.0 10^3/uL Eosinophils # (Auto) 0.1 0.0-0.3 10^3/uL Basophils # (Auto) 0.0 0.0-0.1 10^3/uL Immature Granulocyte # (Auto) 0.1 0.0-0.1 10^3/uL Sodium Level 137 135-145 MMOL/L Potassium Level 3.9 3.6-5.0 MMOL/L Chloride Level 108 H 98-107 MMOL/L Carbon Dioxide Level 19 L 21-32 MMOL/L Anion Gap 10 5-14 MMOL/L Blood Urea Nitrogen 10 7-18 MG/DL Creatinine 0.65 0.60-1.30 MG/DL Estimat Glomerular Filtration Rate > 60 BUN/Creatinine Ratio 15 Glucose Level 93 70-105 MG/DL Calcium Level 9.0 8.5-10.1 MG/DL Corrected Calcium 9.6 8.5-10.1 MG/DL Total Bilirubin 0.3 0.1-1.0 MG/DL Aspartate Amino Transf (AST/SGOT) 11 5-34 U/L Alanine Aminotransferase (ALT/SGPT) 16 0-55 U/L Alkaline Phosphatase 148 H 40-136 U/L Total Protein 6.6 6.4-8.2 GM/DL Albumin 3.3 3.2-4.5 GM/DL Glucometer 89 70-110 MG/DL OB - Assessment/Plan/Diagnosis Assessment Assessment: section Admission Dx 1 previous section 2. contractions 3.. gestational diabetes without treatment or compliance 4. history of ptl x 1 Plan repeat cs due to repeated contractions and risk for uterine rupture. Also poor control of diabetes Risks of bleeding, infection, injury to bowel, bladder and ureter explained to patient and patient understands. Prophylactic antibiotics and SCDs Admission Status: Inpatient Order (span 2 midnights) Reason for Inpatient Admission: section Plan Plan: Section MATIAS DAVIES DO Sep 13, 2020 14:39
[2020-09-13] MEDS ORDERED: FAMOTIDINE 20MG/2ML IV (PEPCID) ONE (14:44)
[2020-09-13] MEDS ORDERED: OXYTOCIN PRE-MIX DRIP 500 ML IV ONE (14:58)
[2020-09-13] MEDS ORDERED: fentaNYL INJ 100 MCG/2 ML AMP ONE (14:58)
[2020-09-13] MEDS ORDERED: ceFAZolin 2 GM IV Premixed 50 ML ONE (15:15)
[2020-09-13] MEDS ORDERED: PHENYLEPHRINE 100 MCG/ML 10 ML (ANESTHESIA) SYR ONE (15:54)
[2020-09-13] MEDS ORDERED: inSUlin ASPART (NovoLOG) 1 UNIT/0.01 ML (CHARGE PER UNIT) SC SCH (16:00)
--- NOTE | 2020-09-13 16:12 | Cesarean Section Operative ---
Procedure Procedure Note Pre-operative Diagnosis: Yareli willoughby (35 /Para 9 / 3053, Gestational Age 36 4/7 weeks previous section x 3, gestational diabetes, contractions Post-operative Diagnosis: same Procedure: repeat low transverse section Physician: MATIAS DAVIES Estimated blood loss: 300 mL Disposition: stable Findings: Viable male infant, Apgars 8/9, weight 7#11 ounces, intact placenta, 3vc, normal appearing uterus, tubes, and ovaries. Indications:Yareli willoughby 35 /Para 9 / 3053,Gestational Age 36 4/7 weeks previous section x 3, gestational diabetes, contractions Procedure Details: The patient was seen in pre-op and the procedure was discussed with the patient in full, including the risks, benefits, and alternatives. All questions were answered. The patient was taken to the operating room and a time out was performed, verifying patient and procedure. After spinal anesthesia was placed by our anesthesia colleagues, the patient was placed in the dorsal supine with leftward tilt for uterine displacement.~ Her abdomen was then prepped and draped in the typical sterile fashion. A Pfannenstiel skin incision was made using a scalpel and carried down through the underlying fascia. The fascia was incised in the midline and tented up using Lamberto clamps. The fascia was very thick and scarred. On both the inferior and superior fascia side the rectus muscle was dissected off bluntly and sharply using Muñoz scissors. The peritoneum was identified and entered bluntly in the midline. This was then stretched laterally using manual strength. After entering the abdominal cavity and confirming lack of intraperitoneal adhesions, a large Mauricio retractor was placed and the lower uterine segment was visualized. A scalpel was utilized to make a low transverse uterine incision. Amniotomy was performed with an Allis clamp with return of clear fluid. The infant's head was grasped and brought to the level of the incision. Fundal pressure was applied and was delivered without difficulty. Mouth and nares were suctioned with bulb suction. After the umbilical cord was clamped and cut, the infant was handed off to the pediatric staff. A sample of cord blood was then obtained. The placenta was delivered intact via uterine massage. The uterus was cleared of all clots and debris. The uterine incision was closed using 0 Vicryl in a running locked fashion. A second imbricated layer was placed using 0 Vicryl in a running fashion as well. The bilateral tubes and ovaries appeared normal. The abdominal gutters were cleared of all clots and debris. A final check of the uterine incision showed it to be hemostatic. The peritoneum was closed using 3-0 Vicryl in a running fashion. The fascia was closed with 0 PDS in a running fashion. The subcutaneous space was hemostatic, and irrigated. The subcutaneous space was closed with 0Plain in several single interrupted stitches. The skin was then closed using 4-0 Monocryl in a running subcuticular fashion. The skin edges were reapproximated together and were hemostatic. A pressure dressing was applied. All sponge, lap and needle counts were correct at the end of the procedure per nursing. Vitals - Labs Labs Laboratory Tests 09/13/20 13:01: White Blood Count 12.7H, Red Blood Count 4.27, Hemoglobin 11.5, Hematocrit 36, Mean Corpuscular Volume 83, Mean Corpuscular Hemoglobin 27, Mean Corpuscular Hemoglobin Concent 32, Red Cell Distribution Width 13.2, Platelet Count 220, Mean Platelet Volume 10.3, Immature Granulocyte % (Auto) 1, Neutrophils (%) (Auto) 77H, Lymphocytes (%) (Auto) 15, Monocytes (%) (Auto) 7, Eosinophils (%) (Auto) 1, Basophils (%) (Auto) 0, Neutrophils # (Auto) 9.7H, Lymphocytes # (Auto) 1.9, Monocytes # (Auto) 0.9, Eosinophils # (Auto) 0.1, Basophils # (Auto) 0.0, Immature Granulocyte # (Auto) 0.1, Sodium Level 137, Potassium Level 3.9, Chloride Level 108H, Carbon Dioxide Level 19L, Anion Gap 10, Blood Urea Nitrogen 10, Creatinine 0.65, Estimat Glomerular Filtration Rate > 60, BUN/Creatinine Ratio 15, Glucose Level 93, Calcium Level 9.0, Corrected Calcium 9.6, Total Bilirubin 0.3, Aspartate Amino Transf (AST/SGOT) 11, Alanine Aminotransferase (ALT/SGPT) 16, Alkaline Phosphatase 148H, Total Protein 6.6, Albumin 3.3 09/13/20 13:12: Glucometer 89 MATIAS DAVIES DO Sep 13, 2020 16:12
[2020-09-13] MEDS ORDERED: OXYTOCIN PRE-MIX DRIP 500 ML IV SCH (16:15)
[2020-09-13] MEDS ORDERED: MEASLES,MUMPS,RUBELLA 1 EA INJ SC SCH (16:15)
[2020-09-13] MEDS ORDERED: TETANUS,DIPTH,PERTUSS P/F (BOOSTRIX) 0.5 ML VIAL IM SCH (16:15)
[2020-09-13] MEDS ORDERED: ONDANSETRON 4 MG/2 ML (SDV) Z0FRAN IVP PRN (16:15)
[2020-09-13] MEDS ORDERED: fentaNYL INJ 100 MCG/2 ML AMP IVP PRN (16:15)
[2020-09-13] MEDS: hydrOXYzine (ATARAX) 10 MG TAB PO PRN (18:23)
[2020-09-13] MEDS ORDERED: CATHETER FLUSH 10 ML SYR IV SCH (22:00)
[2020-09-13] MEDS: DOCUSATE SODIUM 100 MG (COLACE) CAP PO SCH (22:12)
[2020-09-13] MEDS: ACETAMINOPHEN 500 MG TAB (TYLENOL) PO SCH (22:12)
[2020-09-14] MEDS: SIMETHICONE 80 MG (MYLICON) CHEW PO PRN ×5 (00:59→21:08)
[2020-09-14 01:30] VITALS: BP 114/57
[2020-09-14] MEDS ORDERED: MILK OF MAGNESIA 400 MG/5 ML 30 ML UDC PO PRN (05:00)
[2020-09-14] MEDS: ACETAMINOPHEN 500 MG TAB (TYLENOL) PO SCH ×3 (05:35→21:08)
[2020-09-14 06:13] LABS: BASOPHILS % (AUTO) 0 % (0-10); EOSINOPHILS # (AUTO) 0.1 10^3/uL (0.0-0.3); EOSINOPHILS % (AUTO) 0 % (0-10); HEMATOCRIT 31 % (35-52); LYMPHOCYTES # (AUTO) 1.9 10^3/uL (1.0-4.0); LYMPHOCYTES % (AUTO) 14 % (12-44); MEAN CORPUSCULAR HEMOGLOBIN 27 pg (25-34); MEAN CORPUSCULAR HGB CONC 32 g/dL (32-36); MEAN CORPUSCULAR VOLUME 84 fL (80-99); MEAN PLATELET VOLUME 10.6 fL (9.0-12.2); MONOCYTES % (AUTO) 7 % (0-12); NEUTROPHILS % (AUTO) 78 % (42-75); PLATELET COUNT 190 10^3/uL (130-400); WHITE BLOOD COUNT 14.1 10^3/uL (4.3-11.0)
[2020-09-14 06:41] VITALS: BP 132/71
--- NOTE | 2020-09-14 08:14 | Progress Note ---
Standard Progress Note Progress Notes/Assess & Plan Date Seen by a Provider: Sep 14, 2020 Time Seen by a Provider: 08:13 Progress/Assessment & Plan This is a patient of Dr. Garcia for whom I am covering. This patient underwent repeat yesterday. She is ambulating, voiding, tolerating oral intake well and has good pain control. Patient denies chest pain, denies shortness of breath, denies nausea and vomiting, and denies headache. Vital Signs Date Time Temp Pulse Resp B/P (MAP) Pulse Ox O2 Delivery O2 Flow Rate FiO2 09/14/20 06:41 36.5 76 20 132/71 (91) 97 Room Air 09/14/20 01:30 36.8 71 18 114/57 (76) 98 Room Air 09/13/20 21:00 36.9 76 18 133/77 (95) 97 Room Air 09/13/20 17:25 Room Air 09/13/20 17:15 36.8 18 122/72 (89) 98 Room Air 09/13/20 17:00 36.5 18 141/77 (98) 99 Room Air 09/13/20 17:00 Room Air 09/13/20 16:45 Room Air 09/13/20 16:45 36.6 18 135/76 (95) 98 Room Air 09/13/20 16:30 Room Air 09/13/20 16:30 36.6 16 128/83 (98) 98 Room Air 09/13/20 13:50 87 18 139/77 (97) Room Air 09/13/20 13:30 94 18 141/91 (108) Room Air 09/13/20 12:51 36.2 113 18 97 Room Air I & O 09/14/20 07:00 Intake Total 1850 ml Output Total 3150 ml Balance -1300 ml Vital signs are stable. Patient is afebrile. The abdomen is benign. The surgical incision is clean dry and intact Extremities show no clubbing or cyanosis. There is no Homans' sign. Assessment and plan Postoperative day #1 status post repeat doing well. Plan is for routine convalescent care JORGE DIAZ MD Sep 14, 2020 08:14
[2020-09-14 08:30] VITALS: BP 144/67
[2020-09-14] MEDS: FAMOTIDINE 20 MG (PEPCID) TABLET PO PRN (09:33)
[2020-09-14] MEDS: DOCUSATE SODIUM 100 MG (COLACE) CAP PO SCH ×2 (09:33→20:01)
[2020-09-14] MEDS: hydrOXYzine (ATARAX) 10 MG TAB PO PRN (09:33)
[2020-09-14 14:45] VITALS: BP 128/65
[2020-09-14 21:00] VITALS: BP 121/59
[2020-09-15 02:49] VITALS: BP 116/53
[2020-09-15] MEDS: ACETAMINOPHEN 500 MG TAB (TYLENOL) PO SCH ×2 (05:19→13:29)
[2020-09-15] MEDS: SIMETHICONE 80 MG (MYLICON) CHEW PO PRN ×2 (05:19→10:24)
[2020-09-15 07:43] VITALS: BP 142/68
[2020-09-15] MEDS ORDERED: OXC5T PO (08:26)
[2020-09-15] MEDS ORDERED: DCS100C PO (08:26)
--- NOTE | 2020-09-15 08:31 | Discharge Inst-Surgical ---
Discharge Inst-Surgical Depart Medication/Instructions New, Converted or Re-Newed RX: RX on Chart Consults/Follow Up Patient Instructions: As directed Orders & Referrals Follow Up Appt: RTC 1 week for incision check With Dr. Garcia Call to make follow up appt. for patient in [address] Garcia Activity Per routine post instructions. Diet as tolerated Patient may shower or tub bathe as desired. Continue home meds Activity Activity as Tolerated: No Diet Discharge Diet: No Restrictions JORGE DIAZ MD Sep 15, 2020 08:31
[2020-09-15] MEDS ORDERED: [UNRECOGNIZED DRUG - OTHER] (08:33)
--- NOTE | 2020-09-15 08:36 | Progress Note ---
Standard Progress Note Progress Notes/Assess & Plan Date Seen by a Provider: Sep 15, 2020 Time Seen by a Provider: 08:33 Progress/Assessment & Plan This is a patient of Dr. Garcia for whom I am covering. This patient underwent repeat yesterday. She is ambulating, voiding, tolerating oral intake well and has good pain control. Patient denies chest pain, denies shortness of breath, denies nausea and vomiting, and denies headache. Vital Signs Date Time Temp Pulse Resp B/P (MAP) Pulse Ox O2 Delivery O2 Flow Rate FiO2 09/14/20 06:41 36.5 76 20 132/71 (91) 97 Room Air 09/14/20 01:30 36.8 71 18 114/57 (76) 98 Room Air 09/13/20 21:00 36.9 76 18 133/77 (95) 97 Room Air 09/13/20 17:25 Room Air 09/13/20 17:15 36.8 18 122/72 (89) 98 Room Air 09/13/20 17:00 36.5 18 141/77 (98) 99 Room Air 09/13/20 17:00 Room Air 09/13/20 16:45 Room Air 09/13/20 16:45 36.6 18 135/76 (95) 98 Room Air 09/13/20 16:30 Room Air 09/13/20 16:30 36.6 16 128/83 (98) 98 Room Air 09/13/20 13:50 87 18 139/77 (97) Room Air 09/13/20 13:30 94 18 141/91 (108) Room Air 09/13/20 12:51 36.2 113 18 97 Room Air I & O 09/14/20 07:00 Intake Total 1850 ml Output Total 3150 ml Balance -1300 ml Vital signs are stable. Patient is afebrile. The abdomen is benign. The surgical incision is clean dry and intact Extremities show no clubbing or cyanosis. There is no Homans' sign. Assessment and plan Postoperative day #1 status post repeat doing well. Plan is for routine convalescent care September 15, 2020 This patient is without complaint. She is ambulating, voiding, tolerating oral intake well and has good pain control. Patient denies chest pain, denies shortness of breath, denies nausea vomiting, and denies headache. Patient is requesting discharge home today. Vital Signs Date Time Temp Pulse Resp B/P (MAP) Pulse Ox O2 Delivery O2 Flow Rate FiO2 09/15/20 02:49 36.4 95 18 116/53 (74) 95 Room Air 09/14/20 21:00 36.7 93 18 121/59 (79) 96 Room Air 09/14/20 14:45 36.4 98 20 128/65 (86) 96 Room Air Vital signs are stable. Patient is afebrile. The abdomen is benign. The surgical incision is clean dry and intact Per nursing patient report. Patient is breast-feeding the wound was not examined Extremities show no clubbing cyanosis. There is no Homans' sign. Assessment and plan Postoperative day #2 status post repeat delivery doing well. Plan is for discharge home with follow-up in clinic Final Diagnosis Repeat delivery per JORGE Olmstead MD Sep 15, 2020 08:36
[2020-09-15] MEDS: DOCUSATE SODIUM 100 MG (COLACE) CAP PO SCH (10:24)
[2020-09-15] MEDS: FAMOTIDINE 20 MG (PEPCID) TABLET PO PRN (10:24)
[2020-09-16 13:18] LABS: HEPATITIS C ANTIBODY C Non-Reactive (Non-Reactive)
--- NOTE | 2020-09-17 09:34 | Physician Query Clarification ---
PQ-Intro New Diagnosis Admission/Discharge Admission Date: Sep 13, 2020 at 12:45 Discharge Date: Sep 15, 2020 at 16:10 Dr. Davies, The medical record reflects the following clinical scenario: History/Risk Factors: previous C/S, , GDM, PIH, polyhydraminos, LGA Clinical Findings: 36 4/7 weeks contractions 2-5 min Treatment: C/S Question: What condition best reflects the above clinical scenario? Please document a response in the Progress Noter or Discharge Summary. 1. labor/ delivery 2. term delivery 3. Other, with explanation of the clinical findings. 4. Clinically undetermined, no explanation for the clinical findings. PHYSICIAN RESPONSE What condition reflects above: 1 Explanation of clincal finding labor leading to delivery Please remember a lack of response to the above will prompt a phone page by [facility]/Coding staff. In responding to this query, please exercise your independent professional judgment. The purpose of this communication is to more accurately reflect the complexity of your patients condition. The fact that a question is asked does not imply that any particular answer is desired or expected. Thank you for your timely response to this clarification. Requestors name: Hannah THIS PHYSICIAN QUERY FORM IS A PERMANENT PART OF THE MEDICAL RECORD HANNAH HAAS Sep 17, 2020 09:34 MATIAS DAVIES DO Oct 02, 2020 12:33
== END 2020-09-15 16:10 | disposition home or self-care (01) | DRG 786 ==
LOC: LDRP 12:45
PROVIDERS: ADMIT Obstetrics & Gynecology; ATTEND Obstetrics & Gynecology
PROC: 10D00Z1 Extraction of Products of Conception, Low, Open Approach (ICD-10-PCS; principal; 2020-09-13 15:09)
DX: O34.211 Maternal care for low transverse scar from previous cesarean delivery (principal); O60.14X0 Preterm labor third trimester with preterm delivery third trimester, not applicable or unspecified; O24.420 Gestational diabetes mellitus in childbirth, diet controlled; Z3A.36 36 weeks gestation of pregnancy; Z37.0 Single live birth; O36.63X0 Maternal care for excessive fetal growth, third trimester, not applicable or unspecified; O40.3XX0 Polyhydramnios, third trimester, not applicable or unspecified; O13.4 Gestational [pregnancy-induced] hypertension without significant proteinuria, complicating childbirth; Z88.6 Allergy status to analgesic agent; Z88.1 Allergy status to other antibiotic agents; Z88.0 Allergy status to penicillin; Z88.2 Allergy status to sulfonamides
CPT/HCPCS: 36415; 80053; 82947; 85025; 85027; 86803; 86850; 86900; 86901; 87088

== ENCOUNTER → 2020-10-18 | Outpatient (CLI) | payer MEDICARE, MEDICAID ==
[~2020-10-18] MED LIST changes: +DCS100C PO; +OXC5T PO; +[UNRECOGNIZED DRUG - OTHER]
== END ==
LOC: WSo 12:58
PROVIDERS: ATTEND Pediatrics
DX: P92.6 Failure to thrive in newborn (principal)
CPT/HCPCS: 99211